=== PATIENT | female | born 1990 | race Hispanic/Latino ===

== ENCOUNTER 2020-07-16 10:42 | Outpatient (CLI) | payer OTHER ==
--- NOTE | 2020-07-16 12:42 | RAD ---
RIGHT ANKLE 3 VIEWS: Date: 07/16/2020 HISTORY: Injury, right ankle pain. FINDINGS/IMPRESSION: Soft tissue swelling is present. There is a fracture involving the lateral malleolus without signific ant displacement. The ankle mortise is maintained. POS: AH
== END 2020-07-16 10:43 | disposition home or self-care (01) ==
LOC: BICRAD 10:42
DX: S99.911A Unspecified injury of right ankle, initial encounter (principal); S82.61XA Displaced fracture of lateral malleolus of right fibula, initial encounter for closed fracture; M79.89 Other specified soft tissue disorders